=== PATIENT | male | born 1960 ===

== ENCOUNTER 2023-12-26 06:06 | Day surgery (SDC) | payer OTHER, SELFPAY ==
[2023-12-26 06:23] VITALS: BP 112/81; PULSE 75; RESP 16; TEMP 36.4; O2SAT 99
[2023-12-26] MEDS: Lactated Ringers 1,000 ML 80 ML IV (06:36)
--- NOTE | 2023-12-26 07:08 | W.ANESPRE ---
General Info Date of Service Date Performed: 12/26/23 Height: 5 ft 11 in Weight: 94.3 kg Body Mass Index (BMI): 29.0 Surgical Procedure: Operation Date: 12/26/23 07:35 Proposed Procedure Side Surgeon p Gabby Frederick MD Meds Allergies and Home Medications Allergies Allergy/AdvReac Type Severity Reaction Status Date / Time thiopental (From Pentothal) Allergy Unknown Unknown Verified 12/26/23 06:21 Home Medication ?Medication ?Instructions ?Recorded aspirin 81 mg tablet,delayed 81 mg PO DAILY 11/28/23 release atorvastatin 40 mg tablet 40 mg PO DAILY 11/28/23 ticagrelor 90 mg tablet (Brilinta) 90 mg PO BID 11/28/23 bisacodyl 5 mg tablet,delayed 5 mg PO ONCE Colonoscopy Bowel 11/30/23 release Prep #4 tabs polyethylene glycol 3350 17 238 g PO ONCE #238 grams 11/30/23 gram/dose oral powder sertraline 50 mg tablet 50 mg PO DAILY PRN 11/30/23 Current Visit Medications: Current Medications Generic Name Dose Route Start Last Admin Trade Name Freq PRN Reason Stop Dose Admin Ringer's Solution 1,000 mls @ 80 mls/hr 12/26/23 06:00 12/26/23 06:36 IV 12/26/23 23:59 80 mls/hr INFUSION BREE Administration IV Miscellaneous Supplies 1 each 12/26/23 06:00 Iv Access IV 12/26/23 23:59 DIRECTED BREE Sodium Chloride 0 ml 12/26/23 06:00 Normal Saline Flush 10 Ml Syr IV 12/26/23 23:59 PRN PRN Sodium Chloride 0 ml 12/26/23 06:00 Normal Saline 10 Ml Vial IJ 12/26/23 23:59 DIRECTED PRN Sterile Water 0 ml 12/26/23 06:00 Water,Injection,Sterile 10 Ml Vial IJ 12/26/23 23:59 DIRECTED PRN PFSH Active Problems Active Problems: Problem Status Onset Code Hyperlipidemia Acute E78.5 Seasonal affective disorder Acute F33.8 Paroxysmal atrial fibrillation Acute ~2022 I48.0 Medical History Medical History (Updated 12/25/23 @ 11:53 by Randolph Mcdonald) Anxiety and depression Acute myocardial infarction (~2022) 12/2022 x2-first one was ~20 years ago Surgical History Surgical History (Updated 12/25/23 @ 11:53 by Randolph Mcdonald) History of cardiac radiofrequency ablation 8 weeks ago had ablation and is no longer in Afib and has been out of it since H/O heart artery stent x4 stents History of partial knee replacement (~2022) Tobacco Smoking/Tobacco Use Status: Never Alcohol Alcohol Intake: never Substance Use Substance use: Never Substance use type: does not use Vital Signs and Lab Results Vital Signs Most Recent Vital Signs in EMR: Most Recent Vital Signs Temp Pulse Resp BP Pulse Ox 36.4 C L 75 16 112/81 99 12/26/23 06:23 12/26/23 06:23 12/26/23 06:23 12/26/23 06:23 12/26/23 06:23 Lab Results Blood Type / Crossmatch: No Data to Display Complete Blood Count: No Data to Display Complete Metabolic Panel: No Data to Display Liver Function Panel: No Data to Display Coagulation Panel: No Data to Display Cardiac Panel: No Data to Display Arterial Blood Gas: No Data to Display Venous Blood Gas: No Data to Display Pancreas Panel: No Data to Display Thyroid Panel: No Data to Display Infectious Disease: No Data to Display Blood Cultures: No Data to Display Toxicology Panel: No Data to Display Imaging and Studies Imaging and Studies Study information below may be from another EMR and interpreted by another provider. Please see original notes in EMR for more complete details. Echocardiogram Summary: 01/04/2023: EF 55%, Normal Valves. Cardiac Catheterization Summary: 12/2022: NSTEMI: Stent to Diag 1 and LPDA Anesthesia Assessment and Plan Anesthesia History Personal History: No History of Anesthesia Complications Family History: No Family History of Anesthesia Complications Exercise Tolerance Exercise Tolerance: Metabolic Equivalents>4 Pertinent Negatives Pertinent Negatives: No Symptoms of GERD, No Major Pulmonary Symptoms or Complaints and No History of CVA/TIA Cardiac & Pulmonary Exam Cardiac Exam: Normal S1/S2 Heart Sounds Pulmonary Exam: Clear Bilateral Breath Sounds Implantable Cardiac Device Does patient have a Pacemaker or an ICD?: No Airway Exam Known Difficult Airway: No Mallampati Class: 1 Mouth Opening: Normal (> 3cm) Thyromental Distance: Greater than 3 cm Neck Range of Motion: Full ROM Neck Circumference: Normal Teeth Condition: Normal Dentition ASA Classification ASA Score: ASA 3 Emergency Case?: No NPO Status NPO Status: NPO Clears >2 hours, Solids >8 hours Anesthesia Plan Resuscitation Status: Full Code Anesthesia Technique: General Anesthesia Airway Planned: Natural Airway Monitors Used: Standard Monitors
[2023-12-26 07:09] VITALS: BMI 29.0
[2023-12-26 08:07] VITALS: BP 94/61; PULSE 65; RESP 16; TEMP 36.3; O2SAT 97
--- NOTE | 2023-12-26 08:07 | W.COLOREPORT ---
Date of service: 12/26/23 Time of Service: 08:07 Colonoscopy Report Procedure Description: PROCEDURES PERFORMED: 1. Colonoscopy PREOPERATIVE DIAGNOSIS: Surveillance colonoscopy POSTOPERATIVE DIAGNOSIS: Mild sigmoid diverticulosis, grade 1 internal hemorrhoids SURGEON: Vneice Frederick MD INDICATION FOR PROCEDURE: the patient is a 63-year-old man whose brother had colon cancer at the age of 49. He is on 5-year surveillance intervals. He has had 1 polyp found a few colonoscopies ago. Last colonoscopy was reportedly normal. He has no symptoms. FINDINGS: Normal terminal ileum. No polyps. Minimal/mild, scattered diverticular changes in the sigmoid colon only. No inflammation. Mild grade 1 internal hemorrhoid disease. SURVEILLANCE interval/FOLLOW-UP: 5 years because of the family history SPECIMENS: None EBL: Minimal COMPLICATIONS: None QUALITY of prep: Excellent Procedure in detail: The patient gave written consent and was in agreement with the indications, the potential risks as well as the benefits of the procedure. They were taken to the endoscopy suite and laid in the left lateral decubitus position. A timeout was performed and anesthesia was administered which was tolerated well. I started the procedure. Digital rectal and visual examination was performed and grossly within normal limits. A well-lubricated flexible colonoscope was then introduced and passed without any notable difficulty all the way to the cecum identified by the ileocecal valve and the appendiceal orifice. The terminal ileum was intubated and looked normal. The scope was then slowly withdrawn with the above-noted findings. The patient tolerated the procedure well and was taken to the PACU in hemodynamically stable condition.
--- NOTE | 2023-12-26 08:07 | W.PM.DSUDISC ---
Date of service: 12/26/23 Time of Service: 08:08 Discharge Plan Disposition Patient Disposition: Home Condition: Good Discharge Details Attending Provider: Christophe Frederick Primary Care Provider: Unknown,Unknown Home Meds and New Rx's Prescriptions: No Action bisacodyl 5 mg tablet,delayed release (DR/EC) 5 mg PO ONCE Qty: 4 0RF Rx Instructions: Per Colonoscopy bowel prep instructions polyethylene glycol 3350 17 gram/dose powder 238 g PO ONCE Qty: 238 0RF Rx Instructions: For Colonoscopy bowel prep, as directed by office atorvastatin 40 mg tablet 40 mg PO DAILY Brilinta 90 mg tablet 90 mg PO BID aspirin 81 mg tablet,delayed release (DR/EC) 81 mg PO DAILY sertraline 50 mg tablet 50 mg PO DAILY PRN Discharge Instructions Additional Instructions: FINDINS: Your colon and rectum appear healthy. No polyps were found. No inflammation. You do have mild diverticular changes in your colon. This is extremely common, benign and nothing needs to be done about it. You also have mild hemorrhoid disease which is also extremely common, benign and nothing needs to be done about it. Because of your family history, it is recommended that you continue to do colonoscopies every 5 years. Stand Alone Forms: Colonoscopy Post Instructions Activity:: Activity as Tolerated Diet:: As Tolerated
--- NOTE | 2023-12-26 08:36 | W.ANESPOSTOP ---
Postoperative Evaluation Date, Time and Location Date Performed: 12/26/23 Time Performed: 08:15 Patient Location: Day Surgery Unit Vital Signs Most Recent Imported Vital Signs: Most Recent Vital Signs Temp Pulse Resp BP Pulse Ox 36.3 C L 65 16 94/61 L 97 12/26/23 08:07 12/26/23 08:07 12/26/23 08:07 12/26/23 08:07 12/26/23 08:07 Pain Score Most Recent Pain Score: Most Recent Pain Score Pain Level 0 12/26/23 08:07 Assessment Mental Status: Awake (Alert & Oriented to Patient Baseline) Airway and Respiratory Function: Patent airway with normal (patient baseline) respiratory exam Cardiovascular Function: Hemodynamically Stable Hydration Status: Adequately Hydrated Nausea & Vomiting: No Nausea or Vomiting Pain: Pt. Denies Any Pain Peripheral Nerve Block: Patient did not receive a nerve block
[2023-12-26 08:39] VITALS: BP 107/78; PULSE 65; RESP 16; TEMP 36.3; O2SAT 97
== END 2023-12-26 08:58 | disposition home or self-care (01) ==
PROVIDERS: Visit Provider Student in an Organized Health Care Education/Training Program
PROC: 0DJD8ZZ Inspection of Lower Intestinal Tract, Via Natural or Artificial Opening Endoscopic (ICD-10-PCS; CPT 45378; principal; 2023-12-26 07:30)
DX: Z12.11 Encounter for screening for malignant neoplasm of colon (principal); K57.30 Diverticulosis of large intestine without perforation or abscess without bleeding; K64.0 First degree hemorrhoids
CPT/HCPCS: 45378; 00123; J2704